=== PATIENT | male | born 1995 | race Caucasian/White ===

== ENCOUNTER 2017-11-02 09:54 | Emergency (ER) | payer BC ==
[2017-11-02 09:40] VITALS: BMI 22.4
[2017-11-02 09:45] VITALS: BP 129/97; PULSE 83; RESP 17; TEMP 98.2; O2SAT 100
[~2017-11-02 09:54] MED LIST: Absorbable Gelatin Sponge Size 12-7 ONE
--- NOTE | 2017-11-02 10:16 | ED PDOC ---
Arrival/HPI - General Chief Complaint: Abnormal Skin Integrity Time Seen by Provider: 11/02/17 09:55 Historian: Patient - History of Present Illness Narrative History of Present Illness (Text): 11/02/17 10:19 22-year-old male presents today with a superficial laceration to the right second finger. Patient states he was in the garage and an object fell hitting him on the right second finger causing a cut with bleeding. Patient denies numbness weakness or tingling in the extremity. Patient states after 30 minutes he was still having some oozing of blood from the laceration site she came to the emergency room for evaluation. He denies numbness weakness or tingling in the extremity. Denies fevers or chills. Patient states his last tetanus shot was one month ago. Patient denies any other complaints. Time/Duration: 1/2 hour Symptom Onset: Sudden Symptom Course: Improving Quality: Aching Severity Level: 1 Past Medical History - Provider Review Nursing Documentation Reviewed: Yes - Travel History Have you recently traveled outside [place] w/in the past 3 mons?: No - Tetanus Immunization Tetanus Immunization: Up to Date - Psychiatric Hx Depression: No Hx Emotional Abuse: No Hx Physical Abuse: No Hx Substance Use: No - Surgical History Hx Tonsillectomy: Yes - Suicidal Assessment Feels Threatened In Home Enviroment: No Family/Social History - Physician Review Nursing Documentation Reviewed: Yes Family/Social History: Unknown Family HX Smoking Status: Former Smoker Hx Alcohol Use: Yes Frequency of alcohol use: Socially Hx Substance Use: No Hx Substance Use Treatment: No Allergies/Home Meds Allergies/Adverse Reactions: Allergies No Known Allergies Allergy (Verified 01/13/14 00:00) Review of Systems - Review of Systems Constitutional: absent: Fatigue, Fevers Respiratory: absent: SOB, Cough Cardiovascular: absent: Chest Pain, Palpitations Gastrointestinal: absent: Abdominal Pain, Nausea, Vomiting Musculoskeletal: Arthralgias Skin: Laceration Neurological: absent: Headache, Dizziness Psychiatric: absent: Anxiety, Depression Physical Exam Vital Signs Reviewed: Yes Vital Signs Temp Pulse Resp BP Pulse Ox 11/02/17 09:43 98.2 F 83 17 129/97 H 100 Temperature: Afebrile Blood Pressure: Normal Pulse: Regular Respiratory Rate: Normal Appearance: Positive for: Well-Appearing, Non-Toxic, Comfortable Pain Distress: None Mental Status: Positive for: Alert and Oriented X 3 - Systems Exam Head: Present: Atraumatic Neck: Present: Normal Range of Motion Respiratory/Chest: Present: Clear to Auscultation, Good Air Exchange. No: Respiratory Distress, Accessory Muscle Use Cardiovascular: Present: Regular Rate and Rhythm, Normal S1, S2. No: Murmurs Upper Extremity: Present: Normal ROM, NORMAL PULSES, Neurovascularly Intact, Capillary Refill < 2s, Other (right 2nd finger; there is a small approx 1cm superficial partial skin avulsion with minimal bleeding; full rom of finger; non tender; sensation and distal pulses intact. cap refill <2. ). No: Tenderness, Swelling, Erythema, Deformity Neurological: Present: GCS=15 Skin: Present: Warm, Dry Psychiatric: Present: Alert, Oriented x 3 Medical Decision Making ED Course and Treatment: 11/02/17 10:22 Patient is nontoxic well appearing in no distress. Vital signs are stable. Wound cleaned and irrigated well Tetanus up to date. partial superficial skin avulsion does not require laceration repair; gelfoam applied : dressing applied Patient was advised to keep the wound clean and dry, apply bacitracin twice daily. advised follow-up with PMD/hand specialist. Advised to return immediately if signs of infection develop or return if any other concerning symptoms develop Patient verbalizes understanding of discharge instructions and need for immediate followup. all aspects of this case were discussed the attending of record. Impression: partial skin avulsion, finger Motrin every 6 hours as needed for pain keflex; 1 capsule 4 times daily x 5 days Keep the wound clean and dry, apply bacitracin twice daily Return immediately if signs of infection develop: High fevers, increasing pain, redness, swelling, purulent discharge Follow up with the hand specialist within the next 2 days. Followup with primary care physician within the next 2 days Return if any other concerning symptoms develop Disposition/Present on Arrival - Present on Arrival Any Indicators Present on Arrival: No History of DVT/PE: No History of Uncontrolled Diabetes: No Urinary Catheter: No History of Decub. Ulcer: No History Surgical Site Infection Following: None - Disposition Have Diagnosis and Disposition been Completed?: Yes Diagnosis: Avulsion of skin of finger Disposition: HOME/ ROUTINE Disposition Time: 09:56 Patient Plan: Discharge Patient Problems: Current Active Problems Problem Status Onset Avulsion of skin of finger Acute Condition: GOOD Discharge Instructions (ExitCare): Finger Laceration (ED) Additional Instructions: Motrin every 6 hours as needed for pain keflex; 1 capsule 4 times daily x 5 days Keep the wound clean and dry, apply bacitracin twice daily Return immediately if signs of infection develop: High fevers, increasing pain, redness, swelling, purulent discharge Follow up with the hand specialist within the next 2 days. Followup with primary care physician within the next 2 days Return if any other concerning symptoms develop Prescriptions: Cephalexin [Keflex] 500 mg PO QID #20 capsule Ibuprofen [Motrin] 600 mg PO Q6H PRN #20 tab PRN Reason: pain/fever reduction Referrals: Cliff Casillas MD [Staff Provider] - Follow up with primary Jamil Johnson DO [Staff Provider] - Follow up with primary Eugenia Ospina MD [Staff Provider] - Follow up with primary Forms: [employer] (C[place]), WORK NOTE
== END 2017-11-02 10:32 | disposition home or self-care (01) ==
LOC: ED 09:54
DX: S61.210A Laceration without foreign body of right index finger without damage to nail, initial encounter (principal); W20.8XXA Other cause of strike by thrown, projected or falling object, initial encounter; Z87.891 Personal history of nicotine dependence